=== PATIENT | female | born 1935 | race Caucasian/White ===

== ENCOUNTER 2018-01-02 15:19 | Emergency (ER) | payer MEDICARE, MEDICAID ==
[2018-01-02 15:23] VITALS: BMI 23.8
[2018-01-02 15:29] VITALS: RESP 18; TEMP 97.9
[2018-01-02 17:18] LABS: ALB/GLOB RATIO 1.1 (1.1-1.8); ALBUMIN 4.2 g/dL (3.0-4.8); ALT/SGPT 33 U/L (7-56); AST/SGOT 34 U/L (14-36); BLOOD UREA NITROGEN 11 mg/dL (7-21); CALCIUM 9.9 mg/dL (8.4-10.5); GFR AFRICAN-AMERICAN > 60; GFR NON-AFRICAN AMERICAN > 60
[2018-01-02 17:26] LABS: BASO # 0.01 K/mm3 (0.0-2.0); BASO % 0.2 % (0.0-3.0); EOS # 0.1 (0.0-0.7); EOS % 2.4 % (1.5-5.0); GRAN # 1.5 (1.4-6.5); GRAN % 30.7 % (50.0-68.0); HEMOGLOBIN 12.2 g/dL (12.0-16.0); LYMPH # 2.7 (1.2-3.4); LYMPH % 55.1 % (22.0-35.0); MEAN CELL VOLUME 85.7 fl (80.0-105.0); MEAN CORPUSCULAR HEMOGLOBIN 28.6 pg (25.0-35.0); MEAN CORPUSCULAR HGB CONC 33.4 g/dl (31.0-37.0); MEAN PLATELET VOLUME 10.4 fl (7.0-11.0); MONO # 0.6 (0.1-0.6); MONO % 11.6 % (1.0-6.0); RBC 4.26 10^6/uL (3.5-6.1); RED CELL DISTRIBUTION WIDTH 13.6 % (11.5-14.5); WHITE BLOOD COUNT 4.9 10^3/ul (4.5-11.0)
[2018-01-02 17:35] LABS: TROPONIN I < 0.01 ng/mL
--- NOTE | 2018-01-02 17:35 | ED PDOC ---
Arrival/HPI - General Chief Complaint: Cough, Cold, Congestion Time Seen by Provider: 01/02/18 15:31 Historian: Patient - History of Present Illness Narrative History of Present Illness (Text): 01/02/18 17:28 82 year old female presents to the Emergency department complaining of a cough for 2-3 weeks that is occasionally productive. Patient also complains of mild nausea. Patient states she did not get a flu shot this season. Patient denies any fever, chills, chest pain, shortness of breath, vomiting, diarrhea, urinary symptoms, back pain, neck pain, headache, dizziness, or any other complaints. Time/Duration: < month Symptom Onset: Gradual Symptom Course: Unchanged Context: Home Past Medical History - Provider Review Nursing Documentation Reviewed: Yes - Infectious Disease Hx of Infectious Diseases: None - Cardiac Hx Hypertension: Yes - Psychiatric Hx Substance Use: No - Anesthesia Hx Anesthesia: No Family/Social History - Physician Review Nursing Documentation Reviewed: Yes Family/Social History: Unknown Family HX Smoking Status: Never Smoked Hx Alcohol Use: No Hx Substance Use: No Allergies/Home Meds Allergies/Adverse Reactions: Allergies No Known Allergies Allergy (Verified 01/02/18 15:23) Home Medications: Home Meds Medication Instructions Recorded Confirmed Hydrochlorothiazide [Microzide] 1 cap PO QOTHERDAY 01/02/18 01/02/18 Lisinopril [Zestril] 1 tab PO DAILY 01/02/18 01/02/18 amLODIPine [Norvasc] 1 tab PO DAILY 01/02/18 01/02/18 Review of Systems - Physician Review All systems were reviewed & negative as marked: Yes - Review of Systems Constitutional: absent: Fevers, Night Sweats Respiratory: Cough. absent: SOB Cardiovascular: absent: Chest Pain Gastrointestinal: Nausea. absent: Diarrhea, Vomiting Genitourinary Female: absent: Dysuria Musculoskeletal: absent: Back Pain, Neck Pain Neurological: absent: Headache, Dizziness Physical Exam Vital Signs Reviewed: Yes Vital Signs Temp Pulse Resp BP Pulse Ox 01/02/18 15:27 97.9 F 73 18 160/72 H 99 Temperature: Afebrile Blood Pressure: Hypertensive Pulse: Regular Respiratory Rate: Normal Appearance: Positive for: Well-Appearing, Non-Toxic, Comfortable Pain Distress: None Mental Status: Positive for: Alert and Oriented X 3 - Systems Exam Head: Present: Atraumatic, Normocephalic Pupils: Present: PERRL Extroacular Muscles: Present: EOMI Conjunctiva: Present: Normal Mouth: Present: Moist Mucous Membranes Neck: Present: Normal Range of Motion Respiratory/Chest: Present: Clear to Auscultation, Good Air Exchange. No: Respiratory Distress, Accessory Muscle Use Cardiovascular: Present: Regular Rate and Rhythm, Normal S1, S2. No: Murmurs Abdomen: Present: Normal Bowel Sounds. No: Tenderness, Distention, Peritoneal Signs Back: Present: Normal Inspection Upper Extremity: Present: Normal Inspection. No: Cyanosis, Edema Lower Extremity: Present: Normal Inspection. No: Edema Neurological: Present: GCS=15, CN II-XII Intact, Speech Normal Skin: Present: Warm, Dry, Normal Color. No: Rashes Psychiatric: Present: Alert, Oriented x 3, Normal Insight, Normal Concentration Medical Decision Making ED Course and Treatment: 01/02/18 17:36 Impression: 82 year old female presents to the Emergency department complaining of a cough for 2-3 weeks. Plan: -- Chest xray -- EKG -- Reassess and disposition Progress Notes: 01/02/18 18:45 Patient feeling better. labs and CXR reviewed. Patient to be discharged with Rx and follow up instructions. - Lab Interpretations Lab Results: 01/02/18 15:25 01/02/18 15:25 Lab Results 01/02/18 15:25: Sodium 140, Potassium 3.8, Chloride 103, Carbon Dioxide 28, Anion Gap 13, BUN 11, Creatinine 0.7, Est GFR ( Amer) > 60, Est GFR (Non- Af Amer) > 60, Random Glucose 97, Calcium 9.9, Magnesium 2.0, Total Bilirubin 0.7, AST 34, ALT 33, Alkaline Phosphatase 76, Lactate Dehydrogenase 518, Total Creatine Kinase 59, Troponin I < 0.01, Total Protein 8.0, Albumin 4.2, Globulin 3.8, Albumin/Globulin Ratio 1.1 01/02/18 15:25: Influenza Typ A,B (EIA) Negative for flu a/b 01/02/18 15:25: WBC 4.9, RBC 4.26, Hgb 12.2, Hct 36.5, MCV 85.7, MCH 28.6, MCHC 33.4, RDW 13.6, Plt Count 287, MPV 10.4, Gran % 30.7 L, Lymph % (Auto) 55.1 H, [place] % (Auto) 11.6 H, Eos % (Auto) 2.4, Baso % (Auto) 0.2, Gran # 1.50, Lymph # (Auto) 2.7, [place] # (Auto) 0.6, Eos # (Auto) 0.1, Baso # (Auto) 0.01 - RAD Interpretation Radiology Orders: 01/02/18 16:01 CHEST PORTABLE [RAD] Stat - EKG Interpretation EKG Interpretation (Text): 01/02/18 EKG: Ordered, reviewed, and independently interpreted the EKG. Rate : 63 BPM Rhythm : NSR Interpretation : RBBB. Normal axis. Interpreted by ED Physician: Yes Type: 12 lead EKG - Medication Orders Current Medication Orders: Discontinued Medications Meclizine HCl (Antivert) 25 mg PO STAT STA Stop: 01/02/18 17:53 Last Admin: 01/02/18 18:13 Dose: 25 mg - Scribe Statement The provider has reviewed the documentation as recorded by the Abel Sommer Provider Scribe Attestation: All medical record entries made by the Abel were at my direction and personally dictated by me. I have reviewed the chart and agree that the record accurately reflects my personal performance of the history, physical exam, medical decision making, and the department course for this patient. I have also personally directed, reviewed, and agree with the discharge instructions and disposition. Disposition/Present on Arrival - Present on Arrival Any Indicators Present on Arrival: No History of DVT/PE: No History of Uncontrolled Diabetes: No Urinary Catheter: No History of Decub. Ulcer: No History Surgical Site Infection Following: None - Disposition Have Diagnosis and Disposition been Completed?: Yes Diagnosis: Cough, Dizziness Disposition: HOME/ ROUTINE Disposition Time: 18:30 Patient Problems: Current Active Problems Problem Status Onset Cough Acute Dizziness Acute Condition: IMPROVED Discharge Instructions (ExitCare): Cough in Adults, Vertigo (a Type of Dizziness) (DC) Print Language: [place] Additional Instructions: Thank you for letting us take care of you today. The emergency medical care you received today was directed at your acute symptoms. If you were prescribed any medication, please fill it and take as directed. It may take several days for your symptoms to resolve. Return to the Emergency Department if your symptoms worsen, do not improve, or if you have any other problems. Please contact your doctor or call one of the physicians/clinics you have been referred to that are listed on the Patient Visit Information form that is included in your discharge packet. Bring any paperwork you were given at discharge with you along with any medications you are taking to your follow up visit. Our treatment cannot replace ongoing medical care by a primary care provider (PCP) outside of the emergency department. Thank you for allowing the [facility] team to be part of your care today. Follow up with your primary doctor in 3-4 days for re-evaluation and further management. Lyndsay por dejarnos atenderlo hoy. La atencin mdica de emergencia que recibi hoy estaba dirigida a maya sntomas agudos. Si le prescribieron algn medicamento, llnelo y tome segn las indicaciones. Maya sntomas pueden tardar varios marino en resolverse. Regrese al Departamento de Emergencia si maya s ntomas empeoran, no mejoran o si tiene algn otro problema. Comunquese con fan mdico o llame a mery de los mdicos / clnicas a los que veras sido referido que figura en el formulario de Informacin de visita del paciente que se incluye en fan paquete de jin. Traiga todos los documentos que recibi al momento del jin junto con los medicamentos que est tomando en fan visita de seguimiento. Nuestro tratamiento no puede reemplazar la atencin mdica en curso por parte de un proveedor de atencin primaria (PCP) fuera del departamento de emergencias. Lyndsay por permitir que el equipo de [facility] sea parte de fan cuidado hoy. Andrey un seguimiento con fan mdico de cabecera en 3-4 marino para rosey nueva evaluacin y rosey administracin posterior. Prescriptions: Azithromycin [Zithromax] 250 mg PO DAILY #6 tab Meclizine [Meclizine*] 25 mg PO Q6 PRN #20 tab PRN Reason: Dizziness Referrals: Ronald Hodges [Primary Care Provider] - Follow up with primary Forms: [employer] (Bulgarian)
[2018-01-02 19:45] VITALS: BP 145/74; PULSE 70; O2SAT 98
--- NOTE | 2018-01-03 08:06 | RAD ---
HISTORY: R/O INFILTRATE COMPARISON: No prior. FINDINGS: LUNGS: No acute infiltrate bilaterally. Calcified granuloma is identified lateral to the right hilum. PLEURA: No significant pleural effusion identified, no pneumothorax apparent. CARDIOVASCULAR: Cardiac size is upper limits normal. A small hiatal hernia is suspected at the inferior midline mediastinum. OSSEOUS STRUCTURES: No significant abnormalities. VISUALIZED UPPER ABDOMEN: Normal. OTHER FINDINGS: None. IMPRESSION: No definite acute cardiopulmonary disease appreciable. Solitary granuloma seen the right lung with likely hiatal hernia at the inferior mediastinum.
--- NOTE | 2018-01-03 10:09 | CARD ---
APPROVED REPORT EKG Measurement Heart [id number] <Conclusion> Normal sinus rhythm Right bundle branch block Abnormal ECG
== END 2018-01-02 18:45 | disposition home or self-care (01) ==
LOC: ED 15:19
DX: R05 Cough (principal); R42 Dizziness and giddiness; I10 Essential (primary) hypertension